=== PATIENT | male | born 1960 | race Caucasian/White ===

== ENCOUNTER 2017-05-08 23:56 | Emergency (ER) | payer OTHER ==
[~2017-05-08] VITALS: Ht 162.6 cm; Wt 104.3 kg
--- OUTSIDE RECORDS SUMMARY | ~2017-05-08 | XMS | Clinical Summary ---
Demographics + + + | Address | [address] | | | [place] [address] | + + + | Home Phone | | + + + | Preferred Language | Unknown | + + + | Marital Status | Single | + + + | Evangelical Affiliation | Unknown | + + + | Race | White | + + + | Ethnic Group | Not or | + + + Author + + + | Author | [facility] | + + + | Organization | [facility] | + + + | Address | Unknown | + + + | Phone | Unavailable | + + + Support +------+ +---------+ + | Name | Relationship | Address | Phone | +------+ +---------+ + ECON | Unknown | | +------+ +---------+ + Care Team Providers + +------+-------+ | Care Plate Embosser Name | Role | Phone | + +------+-------+ | Ashkan Brown MD | PP | tel | + +------+-------+ Source Comments [facility]YA is fully live on both [facility] and [facility] Allergies No Known Allergies Current Medications + + +-------+---------+------+------+-------+ | Prescription | Sig. | Disp. | Refills | Star | End | Statu | | | | | | t | Date | s | | | | | | Date | | | + + +-------+---------+------+------+-------+ | atorvastatin 20 mg | | | | 09/2 | | Activ | | oral tablet | | | | 3/20 | | e | | | | | | 15 | | | + + +-------+---------+------+------+-------+ | metFORMIN 850 mg | 850 mg. | | | 09/2 | | Activ | | oral tablet | | | | 3/20 | | e | | | | | | 15 | | | + + +-------+---------+------+------+-------+ | metoprolol | 25 mg. | | | 02/05 | | Activ | | tartrate 25 mg oral | | | | 320 | | e | | tablet | | | | 15 | | | + + +-------+---------+------+------+-------+ | | CAPS one by mouth | | | 01/04 | | Activ | | Glucosamine-Chondroi | twice daily | | | 12/23 | | e | | tin 250-200 mg oral | | | | 10 | | | | capsule | | | | | | | + + +-------+---------+------+------+-------+ | loratadine 10 mg | Take by mouth. | | | 08 | | Activ | | oral tablet | | | | 720 | | e | | | | | | 10 | | | + + +-------+---------+------+------+-------+ | LANTUS SOLOSTAR | | | | 01/0 | | Activ | | 100 unit/mL (3 mL) | | | | 620 | | e | | subcutaneous insulin | | | | 16 | | | | pen | | | | | | | + + +-------+---------+------+------+-------+ Active Problems + + + | Problem | Noted Date | + + + | Abdominal pain, epigastric | 07/11/2015 | + + + | D (diarrhea) | 07/11/2015 | + + + | Diabetes mellitus type 2, uncontrolled (HCC) | 03/18/2015 | + + + | HLD (hyperlipidemia) | 03/18/2015 | + + + Social History + +-------+ +--------+------+ | Tobacco Use | Types | Packs/Day | Years | Date | | | | | Used | | + +-------+ +--------+------+ | Never Assessed | | | | | + +-------+ +--------+------+ + + + | Sex Assigned at | Date Recorded | | | | + + + | Not on file | | + + + Plan of Treatment + + + + + | Health Maintenance | Due Date | Last Done | Comments | + + + + + | INFLUENZA VACCINE | | | | | (FLU SHOT) | 7 | | | + + + + + Results Not on filefrom Last 3 Months"
--- OUTSIDE RECORDS SUMMARY | ~2017-05-08 | XMS | Clinical Summary ---
Demographics + + + | Address | [address] | | | [place] [address] | + + + | Home Phone | | + + + | Preferred Language | Unknown | + + + | Marital Status | Single | + + + | Baptism Affiliation | Unknown | + + + | Race | White | + + + | Ethnic Group | Not or | + + + Author + + + | Author | [facility] | + + + | Organization | [facility] | + + + | Address | Unknown | + + + | Phone | Unavailable | + + + Support +------+ +---------+ + | Name | Relationship | Address | Phone | +------+ +---------+ + ECON | Unknown | | +------+ +---------+ + Care Team Providers + +------+-------+ | Care Lead Teller Name | Role | Phone | + +------+-------+ | Ashkan Brown MD | PP | tel | + +------+-------+ Source Comments ROYA is fully live on both [facility] and [facility] Allergies No Known Allergies Current Medications + [...]
[~2017-05-08 23:56] MED LIST: ADVIL200 MG PO; ASPIR-TRIN325 MG PO; ATORVASTATIN CA20 MG PO; CHOLESTYRAMINE L4 GM PO; CLARITIN10 MG PO; GLUCOSAMINE CH1 EAC4 PO; ISOSORBIDE MONO30 MG PO; LANTUS SOL100 UNIT/1 SUB-Q; LEVAQUIN500 MG PO; METFORMIN HCL850 MG PO; METOPROLOL TART25 MG PO; NITROSTAT0.4 MG SL; NOVOLOG100 UNITS/ SUB-Q; QUESTRAN PACKET4 GM
== END 2017-05-09 03:26 | disposition home or self-care (01) ==
LOC: ED 23:56
PROC: 0T9B70Z Drainage of Bladder with Drainage Device, Via Natural or Artificial Opening (ICD-10-PCS; principal; 2017-05-08)
DX: R41.82 Altered mental status, unspecified (principal); I10 Essential (primary) hypertension; E11.40 Type 2 diabetes mellitus with diabetic neuropathy, unspecified; G62.9 Polyneuropathy, unspecified; Z79.4 Long term (current) use of insulin; Z98.890 Other specified postprocedural states; Z79.82 Long term (current) use of aspirin; Z79.899 Other long term (current) drug therapy
CPT/HCPCS: 51701; 70450; 71020; 80053; 81001; 85025; 85610; 85730; 87502; 99284